=== PATIENT | male | born 1970 | race Caucasian/White ===

== ENCOUNTER 2022-05-27 15:00 | Outpatient (RCR) | payer MEDICARE, MEDICAID, SELFPAY ==
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
--- NOTE | 2022-05-27 16:42 | HP.OTDCSUM_ITS ---
It has been my pleasure to treat VISHAL GILBERT under orders from MAXIM ORELLANA, for the diagnosis of right DeQuervain's for a total of 4 visit(s). Please see the following information for a summary of their discharge status. Objective/Function: right head banquet waitress strength 115# increase from 90#. wrist extensors testing with FIT2 tested equally at 11# of peak force resistance. therapist ed. pt on use of wrist brace with thumb included vs one that allowed pt to move wrist-. pt demo understanding of wrist stabilization ex. and posture ex. pt has met goals and is d/c at this time. pt agrees with D/C Patient Goals: Decrease Pain, Use Hand/Wrist/Arm Normally Again, Be More Independent in ADLS Goal:: pt will demo a 10#increase in right UE strength of head banquet waitress and UB to increase pts ind.with ADLs and IADLs Goal:: pt will demo increase in right shoulder ROM by 10* or greater to increase pts ind. with adls and IADLs by d.c Goal:: pt will report no pain greater than 2/10 with use of right UE with ADLs and IADLs by d.c Goal:: pt will demo understanding of wrist ergo with lifting, writing and use of right UE with ADLs and IADLs by d.c Goal:: pt will demo understanding of computer station ergonomics by end of 3rd visit. Goal:: pt will demo good posture with sitting and standing tasks at different levels to decrease stress on UB by d.c Plan: D/C Discharge Comments: pt was seen for 4 OT sessions and has met OT goals at this time. If there are questions or concerns regarding this patient's occupational therapy, please fell free to call me at [phone]. Thank you for the referral of this patient. Sincerely, Sharon Chase, OTR/L, CHT
== END 2022-05-27 17:03 | disposition home or self-care (01) ==
LOC: OT 15:00
DX: M25.531 Pain in right wrist (principal)
CPT/HCPCS: 97110; 97140; 97166; 97530

== ENCOUNTER 2023-01-20 16:00 | Outpatient (RCR) | payer MEDICARE, MEDICAID, SELFPAY ==
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
--- NOTE | 2023-03-04 13:08 | HP.PT.NRP ---
Patient Information Patient Information: VISHAL GILBERT was seen in my office for initial evaluation on 12/31/22. The following Plan of Care was established for this patient: POC Established Initial Frequency: 1x/Week Initial Duration: 4 Weeks Anticipated Interventions Patient/Client Instruction: Educate patient on: Benefits of Fitness Program Therapeutic Exercise to Include: Strength training, Endurance training, Body mechanics, Postural training, Flexibilty training, Neuromotor development, Passive ROM, Active ROM and Scapular Strength/Stabilization For the Purpose of:: To improve muscle performance and motor function Manual Therapy Techniques to Include: Mobilization, Passive ROM and Soft tissue mobilization For the Purpose of:: To decrease pain, To increase ROM, To improve nutrient delivery to tissue, To increase oxygenation perfusion, To improve muscle performance and motor function, To improve health of tissue, To decrease soft tissue restriction and To increase flexibility/ROM TENS: Yes Cryotherapy (ice pack, ice massage): Yes Thermo therapy (hot pack): Yes Ultrasound (thermal/non thermal): Yes For the Purpose of:: To decrease pain, To increase ROM, To improve nutrient delivery to tissue, To increase oxygenation perfusion and To improve muscle performance and motor function Last Seen Last Seen: This patient was last seen in our office . Pertinent comments regarding their Physical therapy will appear below: Patient has not attended PT in over 30 days- appropriate to be d/c from PT and return to MD for further evaluation as needed. At this point I will be discontinuing this patient from physical therapy. I would be happy to see this patient again in the future if found appropriate by the physician. Thank you! Kitty Horton, MICAHT Balance/Gait/Functional tests Balance/Special Test Scores Quick DASH Score: 38.6366
== END 2023-01-20 19:00 | disposition home or self-care (01) ==
LOC: PT 16:00
DX: S16.1XXD Strain of muscle, fascia and tendon at neck level, subsequent encounter (principal); M79.18 Myalgia, other site
CPT/HCPCS: 97035; 97110; 97162; 97530